=== PATIENT | female | born 1975 | race Two or more races ===

== ENCOUNTER 2018-10-15 11:11 | Emergency (ER) | payer SELFPAY ==
[2018-10-15 11:32] VITALS: BP 165/73; PULSE 94; TEMP 98.7; BMI 31.8
--- NOTE | 2018-10-15 12:51 | PDOC ---
History of Present Illness - General Chief Complaint: Cold Symptoms Stated Complaint: HEADACHE Time Seen by Provider: 10/15/18 12:30 - History of Present Illness Initial Comments: 10/15/18 12:48 43-year-old female without comorbidities presents for evaluation of sinus pressure and ear congestion 1 month without systemic symptoms. Past History - Past Medical History Allergies/Adverse Reactions: Allergies Allergy/AdvReac Type Severity Reaction Status Date / Time No Known Allergies Allergy Verified 10/15/18 11:30 Home Medications: Ambulatory Orders Acetaminophen [Tylenol .Regular Strength -] 650 mg PO Q3H PRN #0 tablet Amox-Tr/K Cl [Augmentin - 875Mg Tablet] 1 tab PO BID #20 tablet 10/15/18 Budesonide [Rhinocort Allergy] 1 spray NS ONCE #1 spray.pump 10/15/18 Asthma: No Cancer: No Cardiac Disorders: No Diabetes: Yes HTN: No Seizures: No Thyroid Disease: No - Suicide/Smoking/Psychosocial Hx Smoking History: Never smoked Have you smoked in the past 12 months: No Hx Alcohol Use: No Drug/Substance Use Hx: No Hx Substance Use Treatment: No Review of Systems - Review of Systems Constitutional: No: Fever HEENTM: Yes: Nose Congestion *Physical Exam - Vital Signs Last Vital Signs Temp Pulse Resp BP Pulse Ox 98.7 F 94 H 17 165/73 100 10/15/18 11:25 10/15/18 11:25 10/15/18 11:25 10/15/18 11:25 10/15/18 11:25 - Physical Exam Comments: 10/15/18 12:49 HEAD: NC/AT EYES: Conjuntiva clear Ears: Canals and TM's normal NOSE: No d/cfrontal sinus tenderness THROAT: Moist mucous membrances, oral pharanx clear, uvula midline NECK: Supple without adenopathy CARDIAC: S1 S2 LUNGS: CTA Full and Equal breath sounds ABDOMEN: Soft NT ND MS: Full ROM in all joints without edema NEUROLOGIC: No gross sensory or motor deficits, NVID SKIN: Normal color and temperature no lesions or rashes Medical Decision Making - Medical Decision Making 10/15/18 12:49 Augmentin and Rhinocort for bacterial sinusitis follow-up with ENT. *DC/Admit/Observation/Transfer Diagnosis at time of Disposition: Sinusitis - Discharge Dispostion Disposition: HOME Condition at time of disposition: Stable Decision to Admit order: No - Prescriptions Prescriptions: Amox-Tr/K Cl [Augmentin - 875Mg Tablet] 1 tab PO BID #20 tablet Budesonide [Rhinocort Allergy] 1 spray NS ONCE #1 spray.pump - Referrals Referrals: Guero Wise MD [Staff Physician] - - Patient Instructions Printed Discharge Instructions: Sinusitis, DI for Sinusitis Additional Instructions: Por favor, tome los antibiticos segn las indicaciones y termine todo el curso. Harpal un seguimiento con el mdico de la nariz y la garganta del odo en 1 -2 boone para kim evaluacin adicional y opciones de tratamiento. Por favor, use un aerosol nasal ginna se indica. Y volver a la citlali de urgencias si los sntomas empeoran. please take the antibiotics as directed and finish the entire course. Follow-up with ear nose and throat doctor in 1-2 days for further evaluation and treatment options. Please use a nasal spray as directed. And return to the emergency room should symptoms worsen. Print Language: SAMI - Post Discharge Activity
== END 2018-10-15 12:54 | disposition home or self-care (01) ==
LOC: JERFT 11:11
DX: J01.90 Acute sinusitis, unspecified (principal)
CPT/HCPCS: 99281-25